=== PATIENT | female | born 2000 | race Caucasian/White ===

== ENCOUNTER → 2025-01-19 | Day surgery (SDC) | payer OTHER ==
[2025-01-10 12:24] LABS: BASOPHILS % 0.5 % (0.0-1.0); EOSINOPHILS % 0.7 % (0.0-6.0); LYMPHOCYTES % 37.9 % (18.0-39.1); MONOCYTES % 6.9 % (4.4-11.3); NEUTROPHILS % 53.8 % (38.7-80.0); RED CELL DISTRIBUTION WIDTH 11.9 % (11.7-14.4)
[~2025-01-19] MED LIST: DEXAMETHASONE SOD PHOS INJ 4 MG/ML SDV ONE; EPHEDRINE SULFATE INJ 50 MG/ML VIAL ONE; GLYCOPYRROLATE INJ 0.2 MG/ML VIAL ONE; KETOROLAC TROMETHAMINE 30 MG/ML VIAL ONE; LIDOCAINE HCL 2% LOCAL INJ 5 ML SDV VIAL INJ ONE; ONDANSETRON HCL INJ 2MG/ML 2ML 2 MG/ML VIAL ONE; PROPOFOL IV EMULSION 10 MG/ML 20 ML VIAL ONE
[2025-01-19] MEDS: LACTATED RINGER'S 1,000 ML ONE (05:56)
[2025-01-19] MEDS: CEFAZOLIN SODIUM 2 GM ONE (05:57)
[2025-01-19 11:20] VITALS: BP 110/72; PULSE 84; RESP 18; O2SAT 99
== END | disposition home or self-care (01) ==
LOC: OR 05:28
PROVIDERS: ATTEND Podiatrist Foot Surgery
DX: S93.321A Subluxation of tarsometatarsal joint of right foot, initial encounter (principal); M21.611 Bunion of right foot; X58.XXXA Exposure to other specified factors, initial encounter
CPT/HCPCS: 28292; 28730; 36415; 81025; 85025; C1713 ×2; J1100; J1885; J2003; J2405; J2704; J7121; 76000